=== PATIENT | male | born 1945 | race Caucasian/White ===

== ENCOUNTER 2017-04-05 17:21 | Emergency (ER) | payer OTHER ==
[~2017-04-05] VITALS: Ht 175.3 cm; Wt 84.4 kg
--- NOTE | ~2017-04-05 | MR18 ---
[facility] A Service of [facility] / [facility] RADIOLOGY TEXT RESULTS PATIENT: ZBIGNIEW VASQUEZ LOCATION: CED[facility] : 45 UNIT #: [id number] AGE: [address]: Aurora Whalen MD SEX: M ORDER DR: [id number] [facility] [address] [place], [place] [address] [id number] I MR#: [id number] Acc #: [id number] NAME: ZBIGNIEW VASQUEZ. : 1945 SEX: M STUDY DATE/TIME: 04/06/2017 9:43 UNIT: CEDOF ROOM: 64920 STUDY DESCRIPTION: MR Brain Wo Contrast Attending Physician: Aurora Whalen M.D. Ordering Physician: Odilia Bautista M.D. Primary Care Physician: Ata Dixon M.D. MRI CENTER REPORT This report is preliminary unless electronic signature is present. EXAM MRI of the brain without contrast HISTORY Left eye vision loss starting yesterday with hypertension dizziness previous right endarterectomy. The technologist noted that even though the patient was sedated he could not complete the examination. Limited study is available with sagittal T1 series and axial T2 and diffusion series. FINDINGS The pituitary gland and foramen magnum region are normal. There is no restricted diffusion. There is mild generalized atrophy with minimal symmetric small vessel ischemic changes. IMPRESSION The study is limited because the patient could not complete the entire exam despite sedation. There is no restricted diffusion visible. There is mild atrophy and minimal small vessel ischemic changes. No other abnormalities are identified. Dictated by... Nestor Bowman M.D. THIS IS AN ELECTRONICALLY VERIFIED REPORT Nestor Bowman M.D. at 04/08/2017 7:21 AM HALEIGH/rnmonique TD: 04/07/2017 00:22 JOB #: [id number] [facility] A Service [facility] RADIOLOGY TEXT RESULTS PATIENT: ZBIGNIEW VASQUEZ LOCATION: [facility] : 45 UNIT #: [id number] AGE: [address]: Aurora Whalen MD SEX: M ORDER DR: MRI CENTER REPORT Page 1 of 1 COPY
--- NOTE | ~2017-04-05 | CT71 ---
[facility] A Service of [facility] & [facility] RADIOLOGY TEXT RESULTS PATIENT: ZBIGNIEW VASQUEZ LOCATION: [facility] [id number] : 45 UNIT #: [id number] AGE: [address]: Aurora Whalen MD SEX: M ORDER DR: [id number] [facility] [address] [place], [place] [address] [id number] I MR#: [id number] Acc #: [id number] NAME: ZBIGNIEW VASQUEZ. : 1945 SEX: M STUDY DATE/TIME: 04/05/2017 19:55 UNIT: CEDOF ROOM: [id number] STUDY DESCRIPTION: CT Head Wo Contrast Attending Physician: Aurora Whalen M.D. Ordering Physician: Odilia Bautista M.D. Primary Care Physician: Ata Dixon M.D. MEDICAL IMAGING REPORT This report is preliminary unless electronic signature is present EXAM Head CT without HISTORY 71-year-old patient with a known aneurysm that physicians have been following for 3 years. Prior imaging at [facility]. 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 He lost complete vision in the left eye yesterday at 11 a.m. His vision is slowly coming back today. TECHNIQUE Routine noncontrasted head CT is reviewed. The study is performed in the axial plane. This CT exam was performed with one or more of the following radiation dose reduction techniques: automatic exposure control, adjustment of mA and/or kV according to patient size, and iterative reconstruction. FINDINGS The patient's prior imaging has been performed at [facility], and I do not have access to any films or reports. Therefore, I cannot follow up the patient's known intracranial aneurysm. Most helpful would be review of outside imaging. 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 This study would not be sensitive for intracranial aneurysm. There is streak artifact, particularly on the lower images, presumably due to some motion. Allowing for this, there is no evidence for acute intracranial hemorrhage or extraaxial fluid collection. There is mild generalized atrophy. The patient has had cataract surgery bilaterally. Mild probable sequelae of small vessel disease present. This includes some white matter low attenuation in the periatrial white matter, qrkqi-hlepylh-ybox-left. No acute cortical infarct is suspected. No STS. [facility] A Service of [facility] & [facility] RADIOLOGY TEXT RESULTS PATIENT: ZBIGNIEW VASQUEZ LOCATION: [facility] [id number] : 45 UNIT #: [id number] AGE: [address]: Aurora Whalen MD SEX: M ORDER DR: intracranial mass effect. IMPRESSION 1. 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 This is a noncontrasted head CT and is not sensitive for a diagnosis of intracranial aneurysm. The patient has never had intracranial imaging at this institution, and reportedly, his studies that show intracranial aneurysm were performed at [facility]. Direct comparison to those films would be most helpful. 2. Allowing for some streak artifact, there is no evidence for acute intracranial hemorrhage or extraaxial fluid collection. 3. Atrophy and mild probable sequelae of small vessel disease. Nothing to suggest acute cortical infarct. If this, however, of clinical concern, recommend correlation with follow-up imaging, preferably MRI brain. Dictated by... Gely Carlisle M.D. THIS IS AN ELECTRONICALLY VERIFIED REPORT Gely Carlisle M.D. at 04/08/2017 6:12 AM Aroldo TD: 04/06/2017 11:33 JOB #: [id number] MEDICAL IMAGING REPORT Page 1 of 1 COPY
--- NOTE | ~2017-04-05 | HP ---
Unit #: [id number] #: [id number] Patient: ZBIGNIEW VASQUEZ [id number] [address] [place], [place] [address] [id number] I MR#: [id number] NAME: ZBIGNIEW VASQUEZ ROOM: 45543 Age: 71 Sex: M Admission Date: 04/05/2017 : 1945 Attending Physician: Aurora Whalen M.D. Primary Care Physician: Ata Dixon M.D. HISTORY AND PHYSICAL CHIEF COMPLAINT Left eye vision loss. HISTORY OF PRESENT ILLNESS This is a 71-year-old gentleman who has a history of diabetes, hypertension, coronary artery disease, congestive heart failure, gastroesophageal reflux disease, anemia, chronic kidney disease, chronic obstructive pulmonary disease, dyslipidemia, chronic atrial fibrillation on Coumadin and degenerative joint disease. He said he lost vision in the left eye yesterday, like a curtain in front of the eye. He sees a little better today. He went to see the eye doctor today, Lilly, and they sent him to the emergency room for stroke workup. He had eye exam and was told that he had a possible stroke. He denies any chest pain, diaphoresis, nausea, vomiting, abdominal pain or weakness. No other complaint. PAST MEDICAL HISTORY 1. History of coronary artery disease. 2. History of congestive heart failure. 3. Hypertension. 4. Hyperlipidemia. 5. History of atrial fibrillation on chronic anticoagulation on Coumadin. 6. Diabetes. 7. Chronic obstructive pulmonary disease. 8. Anemia. 9. Gastroesophageal reflux disease. 10. Degenerative joint disease. 11. Questionable history of chronic kidney disease. PAST SURGICAL HISTORY 1. History of cardiac catheterization. 2. Inguinal hernia repair. 3. EGD and colonoscopy in the past. SOCIAL HISTORY The patient is a smoker. He smokes one pack daily for 50 years. Denies alcohol. Denies other illicit drug use. FAMILY HISTORY Notable for coronary artery disease. ALLERGIES No known drug allergies. Unit #: [id number] #: [id number] Patient: ZBIGNIEW VASQUEZ HOME MEDICATIONS 1. Albuterol via nebulizer q.6 h. p.r.n. 2. Aspirin 81 mg daily. 3. Coreg 25 mg b.i.d. 4. Fluticasone nasal spray daily. 5. Lasix 40 mg b.i.d. 6. Ipratropium inhaler via nebulizer q.6 h. 7. Isosorbide 60 mg daily. 8. Lisinopril 20 mg b.i.d. 9. Loratadine 10 mg daily. 10. Metformin 500 b.i.d. 11. Nitroglycerin 0.4 mg sublingual daily. 12. Protonix 40 mg daily. 13. Pravastatin 40 mg daily. 14. Tizanidine 4 mg 1 tablet p.r.n. 15. Trazodone 50 mg 1 tablet at bedtime. 16. Ventolin inhaler 2 puffs q.6 h. p.r.n. 17. Coumadin 6 mg 2 tablets daily. REVIEW OF SYSTEMS All review of systems negative except as per history of present illness. PHYSICAL EXAMINATION GENERAL: Elderly man lying in the bed comfortably. Currently not in any distress. He is alert, awake and oriented times three. VITALS: Currently, temperature 97.8, heart rate 87, respiratory rate 16, blood pressure 122/64, oxygen saturation 98% on room air. HEENT: Pupils equal and reactive to light and accommodation. Head is normocephalic, atraumatic. NECK: Supple. No jugular venous distension. No thyromegaly. Trachea midline. LUNGS: Clear to auscultation. No rhonchi. No wheezing. HEART: S1 and S2. Regular. ABDOMEN: Soft, nontender and nondistended. Bowel sounds positive. EXTREMITIES: Inspection normal. No cyanosis, clubbing or edema. NEUROLOGIC: he is alert and oriented times three. No focal neurologic deficits. Cranial nerves II through XII intact. Power 5/5 both side. PSYCHIATRIC: Normal mood and affect. Cooperative. SKIN: Warm and dry. DIAGNOSTIC STUDIES IMAGING: CT of the head pending at the time of dictation. Chest x-ray shows mild vascular congestion. LABORATORY: Sodium 140, potassium 3.9, chloride 102, CO2 28, glucose 125, BUN 32, creatinine 1.8, LFTs within normal limits. INR 1.8. White blood cell count 10, hemoglobin 9.2, hematocrit 28.3, platelets 258, glucose 128. ASSESSMENT/PLAN 1. Left eye vision loss and amaurosis fugax. Will admit the patient for 23-hour observation. Will get MRI of the head and carotid Doppler. Ask neurology, Dr. Chang, to evaluate. 2. Diabetes with increased creatinine. Hold metformin. Place on sliding scale. 3. Hypertension. 4. Coronary artery disease. Unit #: [id number] #: [id number] Patient: ZBIGNIEW VASQUEZ 5. History of congestive heart failure. Currently he is stable. Continue Lasix, Coreg. 6. History of gastroesophageal reflux disease. 7. History of anemia. 8. Chronic kidney disease. 9. History of chronic obstructive pulmonary disease. 10. Dyslipidemia. 11. Chronic atrial fibrillation. 12. Degenerative joint disease. 13. DVT prophylaxis. He is on Coumadin. Dictated by Scott Pickard TD: 04/06/2017 08:25 JOB #: [id number] HISTORY AND PHYSICAL Page 1 of 1 X X HISTORY AND PHYSICAL
--- NOTE | ~2017-04-05 | US37 ---
[facility] A Service of [facility] RADIOLOGY TEXT RESULTS PATIENT: ZBIGNIEW VASQUEZ LOCATION: [facility] : 45 UNIT #: [id number] AGE: [address]: Odilia Bautista MD SEX: M ORDER DR: [id number] [facility] [address] [place], [place] [address] [id number] MR#: [id number] Acc #: [id number] NAME: ZBIGNIEW VASQUEZ. : 1945 SEX: M STUDY DATE/TIME: 04/05/2017 21:46 UNIT: LEYDI ROOM: STUDY DESCRIPTION: US Carotid W/Doppler Bilateral Attending Physician: Odilia Bautista M.D. Ordering Physician: Odilia Bautista M.D. Primary Care Physician: Ata Dixon M.D. MEDICAL IMAGING REPORT This report is preliminary unless electronic signature is present EXAM Carotid Doppler, 04/05/2017 PROCEDURE Moore-scale imaging, color Doppler flow imaging and Doppler waveform analysis. COMPARISON None HISTORY Known carotid stenosis 5 years status post right carotid endarterectomy. FINDINGS There is moore-scale imaging of plaque throughout both carotid systems. On the right, there is antegrade flow in the common, and internal and external carotid arteries and right vertebral artery. The right internal carotid waveforms are suboptimal due to patient compliance, but internal carotid peak systolic velocity appears to be 51 cm/sec with a brisk upstroke and moderate spectral broadening. The right vertebral flow is antegrade. On the left, there is antegrade flow in the common, and internal and external carotid arteries and plaque throughout the carotid system on moore-scale. Internal carotid peak systolic velocity is 156 cm/sec with a brisk upstroke and lkpl-gf-nuitvkzh spectral broadening. The left vertebral flow is antegrade. IMPRESSION 1. Less than 50% right and 50% to 69% left internal carotid stenosis by NASCET criteria, based on peak systolic velocities. 2. Antegrade flow in both external carotid and vertebral arteries, as well. Moore-scale evidence of plaque is seen throughout both carotid [facility] A Service of [facility] RADIOLOGY TEXT RESULTS PATIENT: ZBIGNIEW VASQUEZ [facility] [place] [facility] #: [id number] : [birth year] UNIT #: [id number] AGE: [address]: Odilia Bautista MD SEX: M ORDER DR: systems. Dictated by... Jhoan Morales M.D. THIS IS AN ELECTRONICALLY VERIFIED REPORT Jhoan Morales M.D. at 05/06/2017 9:09 AM TEV/psc TD: 05/02/2017 23:34 JOB #: [id number] MEDICAL IMAGING REPORT Page 1 of 1 COPY
--- NOTE | ~2017-04-05 | EKG ---
PATIENT: ZBIGNIEW VASQUEZ UNIT #: [id number] Ventricular Rate: 72 BPM Atrial Rate: 71 BPM QRS Duration: 108 ms Q-T Interval: 432 ms QTC Calculation(Bezet): 473 ms Calculated R [place]: 93 degrees Calculated T [place]: 42 degrees Diagnosis Line: Atrial fibrillation Diagnosis Line: Rightward axis Diagnosis Line: Pulmonary disease pattern Diagnosis Line: Nonspecific ST and T wave abnormality Diagnosis Line: Abnormal ECG Diagnosis Line: When compared with ECG of 29-AUG-2016 12:36, Diagnosis Line: Questionable change in QRS duration Diagnosis Line: Confirmed by CHRISTA MACHUCA MD ([id number]) on Diagnosis Line: 04/08/2017 8:53:06 AM INTERPRETING MD: SVEN ORTA
--- NOTE | ~2017-04-05 | CR72 ---
[facility] A Service of [facility] RADIOLOGY TEXT RESULTS PATIENT: ZBIGNIEW VASQUEZ LOCATION: [facility] : 45 UNIT #: [id number] AGE: [address]: Aurora Whalen MD SEX: M ORDER DR: [id number] [facility] [address] [place], [place] [address] [id number] I MR#: [id number] Acc #: [id number] NAME: ZBIGNIEW VASQUEZ. : 1945 SEX: M STUDY DATE/TIME: 04/05/2017 18:43 UNIT: CEDOF ROOM: 59830 STUDY DESCRIPTION: CR Chest Single View Portable Attending Physician: Aurora Whalen M.D. Ordering Physician: Odilia Bautista M.D. Primary Care Physician: Ata Dixon M.D. MEDICAL IMAGING REPORT This report is preliminary unless electronic signature is present EXAM Chest x-ray INDICATIONS Cough, congestion today. Eye doctor said he had stroke behind left eye. 40-year smoking history. TECHNIQUE AP radiograph of the chest presented COMPARISON 08/29/2016 FINDINGS No acute bony abnormality. Stable mild cardiac enlargement. Lung volumes moderate. Slightly lower than on prior examination. Mild vascular prominence could be a reflection of the low lung volumes and/or mild vascular congestion. Weight should be given to clinical assessment. Mild linear interstitial prominence in the central and inferior lung zones. This is a subtle finding could be a reflection of the low lung volumes and some degree of atelectasis. Correlate with any clinical concern for minimal interstitial edema. There is no dense airspace disease, pleural effusion or pneumothorax. No suspicious nodule. Stable calcified granulomata in the right lung. Dictated by... Kurt Bowser M.D. THIS IS AN ELECTRONICALLY VERIFIED REPORT Kurt Bowser M.D. at 04/06/2017 2:37 PM JSK/to [facility] A Service of [facility] RADIOLOGY TEXT RESULTS PATIENT: ZBIGNIEW VASQUEZ LOCATION: [facility] : 45 UNIT #: [id number] AGE: [address]: Aurora Whalen MD SEX: M ORDER DR: TD: 04/06/2017 09:36 JOB #: [id number] MEDICAL IMAGING REPORT Page 1 of 1 COPY
--- NOTE | ~2017-04-05 | CO ---
Unit #: [id number] #: [id number] Patient: ZBIGNIEW VASQUEZ [id number] [facility] [address]. [place], [place] [address] [id number] MR#: [id number] NAME: ZBIGNIEW VASQUEZ. ROOM: [id number] Age: 71 Sex: M Admission Date: 04/05/2017 : 1945 Attending Physician: Aurora Whalen M.D. Primary Care Physician: Ata Dixon M.D. Consultation Date: 04/06/2017 CONSULTATION REPORT PRIMARY CARE PHYSICIAN Dr. Ata Dixon REASON FOR CONSULTATION Left eye vision loss. PATIENT IDENTIFICATION This is a 71-year-old right-handed male, evaluated in the ER room 13 at [facility]. SOURCE OF INFORMATION Obtained from the patient as well as medical record. HISTORY OF PRESENT ILLNESS This is a 71-year-old right-handed male with a past medical history of CAD; CHF; chronic atrial fibrillation, on warfarin; COPD; hypertension; hyperlipidemia; and other medical issues, who presents to [facility] with complaints of left eye vision loss. He is admitted for amaurosis fugax. Apparently, the day before admission, he had lost vision in his left eye and went to see his eye doctor. He states he initially went to see his PCP, who referred him to an eye doctor and states he was told that he needed to come to the ER for possible stroke after his eye exam. Again, this was reported as amaurosis fugax. However, when I discussed with the patient, he states that the vision loss lasted for about 24 hours and felt more or like ""a scotch tape over my eye." It was not completely black, but it was very blurry and he was unable to see anything. He states that symptoms improved, but that he still has blurred vision centrally. He essentially has a central vision loss, which he describes more as a dot in the middle of his eye and he states it is "blurry and saini." He states peripherally though he can see, he states that it is better with both eyes open, but whenever he closes his right eye, he states that he really notices the deficit in the left eye. He denies any pain or trauma. He denies any field cut. He denies any double vision, headache, neck pain, any recent illness or injury, change in weight or routine or medications. He denies any nausea, vomiting, abdominal pain, chest pain, shortness of air, palpitations, any focal weakness or paresthesia in the face, arm, or leg, any headache, speech or swallowing difficulty, or any loss of consciousness, or loss of awareness. His INR on warfarin in the ER was noted to be 1.8 subtherapeutic. He supposed to be on aspirin, but states that he told his primary care physician long ago that he did not want to take aspirin because he read that he should not be on that in addition to warfarin due to increased bleeding risk. He denies any exacerbating or alleviating factors to his vision change and reports that he is better, but not at his Unit #: [id number] #: [id number] Patient: ZBIGNIEW VASQUEZ. He had a head CT done in the ER without contrast that was negative for any acute intracranial abnormality. No acute hemorrhage or extra-axial fluid collection with atrophy and mild probability of sequelae of small vessel disease, but nothing to suggest acute cortical infarct. 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 There was no comparison imaging at this institution, though there was report the patient had studies done at [facility] for intracranial aneurysm. The patient admits to prior vascular evaluations, but reports that he did not follow up. He had an MRI of the brain done that was not fully completed as the patient states he could not lie flat due to difficulty breathing. DWI and ADC imaging was done, which did not reveal any acute or subacute ischemic findings. Imaging appears to be suggestive of some chronic small vessel disease, but is very motion limited in that sequence. The patient also had a carotid ultrasound done in the ER on 04/05/2017 and is essentially nondiagnostic. It was recommended the patient undergo carotid Doppler ultrasound by a tech, who is trained to do vascular imaging. I have discussed with the patient regarding getting further imaging and he adamantly denies being able to tolerate at this time. He is unable to undergo CT angiogram due to kidney function and refuses MR imaging at this time. He is wanting to leave and come back for testing and states that he wants to go home and get a good night's sleep and refuses to stay for further evaluation. PAST MEDICAL HISTORY 1. CAD. 2. CHF. 3. Hypertension. 4. Hyperlipidemia. 5. 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 Please see above. 6. History of chronic atrial fibrillation, on chronic anticoagulation with warfarin. 7. Diabetes mellitus type 2. 8. COPD. 9. Anemia. 10. GERD. 11. DJD. 12. GI bleed with elevated INR, on warfarin. 13. Chronic kidney disease. 14. Cardiac catheterization. 15. Inguinal hernia repair. 16. Right carotid endarterectomy. The patient tells me that he was supposed to have a left carotid endarterectomy, but never followed up. 17. EGD and colonoscopy in the past. FAMILY HISTORY Noncontributory. SOCIAL HISTORY The patient continues to smoke a half pack per day of tobacco and has smoked for 50 years. He denies alcohol abuse or illicit drug use. ALLERGIES No known drug allergies. HOME MEDICATIONS Include; albuterol, Coreg, fluticasone, Lasix, ipratropium inhaler via Unit #: [id number] #: [id number] Patient: VASQUEZZBIGNIEW nebulizer, isosorbide, lisinopril, loratadine, metformin, nitroglycerin, Protonix, pravastatin, tizanidine, trazodone, Ventolin, and Warfarin. He has aspirin listed on his med list, he states he has not taken that in a very long time. Please see above. REVIEW OF SYSTEMS 14-point review of systems was done. Pertinent positives are as discussed above. He denies any dizziness or vertigo or any other symptoms unless as discussed above in the HPI. PHYSICAL EXAMINATION VITAL SIGNS: Temperature 97.5, he has been afebrile; pulse 78; respirations 16; blood pressure 131/65, oxygen saturations 96%, height 5 feet 9 inches, weight 186 pounds, BMI 27. NEUROLOGIC: The patient is awake, alert, and oriented to person, place, and time as well as events. No right or left confusion. No finger agnosia. No aphasia, dysarthria, or apraxia. Cranial nerve exam demonstrates full cooley of vision, but has report of central vision loss at the left eye. On exam, he has decreased or lack of response to visual threats in the left eye centrally peripherally, though however he does respond. He does not appear to have any field cut medially or laterally, upper or lower. The right eye appears to be intact. Extraocular movements are intact. Sensation of face and scalp is intact. Strength of the facial expression is intact. Hearing is intact to finger rub and conversation. Tongue is midline. Uvula is midline. Palate elevation is normal. Head turning and shoulder shrug is unremarkable. Neck is supple. Motor exam demonstrates normal bulk and tone. Strength is equal 5/5 in all extremities. Sensory exam intact without extinction. Gait normal. Romberg deferred. Reflexes unable to elicit. Toes are equivocal. Coordination unremarkable. DIAGNOSTIC STUDIES IMAGING STUDIES: Please see above CT for head without contrast, MRI of the brain without contrast. Full dictated report is pending. Voice clip reviewed and also for carotid Doppler ultrasound done on 04/05/2017, voice clip reviewed. Full dictated report is pending. Chest x-ray on 04/05/2017; impression per Radiology report; 1. No acute bony abnormality. Stable mild cardiac enlargement. Lung volumes moderate slightly lower than on prior exam. Mild vascular prominence could be reflection of low lung volumes and/or mild vascular congestion, which should be given to clinical assessment. Mild linear interstitial prominence of the central and inferior lung zone. Subtle findings could be a reflection of the lower lung volumes and some degree of atelectasis. No dense airspace disease, pleural effusion, or pneumothorax. No suspicious nodule. Stable calcified granulomata in the right lung. LABORATORY RESULTS: Sodium 136, potassium 3.9, chloride 99, CO2 of 27, glucose 141, BUN 33, creatinine 1.7, estimated GFR 39.7, calcium 9.1. PT 19.5, INR 1.8, PTT 30.5. White blood cell count 10, hemoglobin 9.2, hematocrit 28.3, and platelet count 258. Glucose on arrival 128. IMPRESSION 1. Complaints of left eye vision loss, questionable scotoma, residual central vision impairment. History per the patient not consistent with amaurosis fugax at this time. No acute stroke seen on MRI, though cannot rule out a problem with the retina. Must consider optic neuritis or other optic nerve condition. 2. Basilar aneurysmal dilatation concern given report of size, though no Unit #: [id number] #: [id number] Patient: ZBIGNIEW VASQUEZ prior imaging for comparison. The patient has not continued with prior vascular followup in the past. 3. Coronary artery disease. 4. Chronic atrial fibrillation, with subtherapeutic INR of 1.8. 5. Chronic kidney disease. 6. Diabetes mellitus type 2. 7. Tobacco use. 8. History of congestive heart failure. 9. History of anemia. 10. Chronic obstructive pulmonary disease, suspect possible sleep apnea. The patient states he has not been evaluated, but was recommended to be evaluated in the past. PLAN I had a long discussion with Dr. Chang. The patient needs carotid evaluation. He needs intracranial vascular evaluation, though he states he cannot lie flat for an MRA. It was not willing to try again for that. He cannot do CT angiogram given his kidney disease and estimated GFR currently. Carotid ultrasound is essentially nondiagnostic. Consider differential as discussed above. This is an atypical presentation, must consider Solu-Medrol for possible optic neuritis. Consider further evaluation with conventional angiography for aneurysmal dilatation of the basilar, though does not appear to be contributing to his symptoms or presentation. Recommend considering transfer for inpatient neurologist evaluation, Ophthalmology evaluation, and consideration of EMGs. I have recommended the patient that he will be transferred to another facility for the above further workup including the above testing EMGs, possible conventional angiogram, treatment of possibility of optic neuritis, and full intracranial evaluation including the carotids. The patient states that he wants to leave and that he is not going to be going to another hospital today and that he is not staying here today. He states "I know that I'm not going to live more than 2 more years at best because of I've so much wrong with me." He states that he wants to go home and get some sleep and that he is willing to come back at a later date. Explained to him that he needs to have this testing done as an inpatient given his presentation that his vision is at risk and may be permanent. He appears like understanding of his symptoms and risk factors for further vision loss and other further problems including further stroke both hemorrhagic and/or ischemic and may need possible medication adjustment. Recommend continuing adding aspirin, the patient refuses. INR needs to be above 2, but again he also needs further evaluation of his intracranial vasculature and he again needs further specialty evaluation. The patient has elected to leave against medical advice. Please refer to the above consult note for recommendations. Case discussed with Dr. Chang at length. Dictated by... Candelaria DotyPMichaelRMichaelNMichael for Scott Davis/ricky TD: 04/06/2017 19:34 JOB #: [id number] Unit #: [id number] #: [id number] Patient: ZBIGNIEW VASQUEZ CONSULTATION REPORT Page 1 of 1 X Jennifer Rivas APRN CONSULTATION REPORT
[~2017-04-05 17:21] MED LIST: ACETAMINOPHEN PO; ACETAMINOPHEN325 MG PO; ALAVERT10 MG PO; ALBUTEROL0.83 MG/ML IH; ALKA SELTZER; ALLERGY10 M2 PO; AMARYL PO; AMLODIPINE BESYL5 MG PO; AMOXICILLIN PO; ARNUITY ELLIP100 MCG; ASPIRIN EC81 M1 PO; ASPIRIN PO; ASPIRIN81 M1 PO; ASPIRIN81 MG PO; BIAXIN250 MG PO; CARVEDILOL12.5 MG PO; CARVEDILOL25 MG PO; COMBIVENT MININEB INH; COMBIVENT RESPIM4 GM INH; COMBIVENT U/D3 M2 INH; COMBIVENT14.7 GM INH; COREG12.5 MG PO; COUMADIN6 MG PO; EFFIENT10 MG PO; FAMOTIDINE20 M1 PO; FENOFIBRATE48 MG PO; FERROUS SULFATE1 TAB PO; FLOMAX0.4 M1 PO; HYDROCODON-ACE1 EAC7 PO; IMDUR-ER60 MG PO; INHALER; IRON1 TA1 PO; IRON325 ( 651 PO; ISOSORBIDE DINI30 MG PO; K-DUR20 ME1 PO; LASIX PO; LASIX80 MG PO; LEVAQUIN750 MG PO; LISINOPRIL PO; LISINOPRIL20 MG PO; LORTAB 7.5-3251 EACH PO; MELOXICAM15 MG PO; METFORMIN HCL500 M1 PO; MIRALAX17 GM DOB; NAPROSYN500 MG PO; NITROGLYCERIN0.4 MG SL; NITROGLYGERIN0.4 MG SL; NITROSTAT0.4 MG SL; NORVASC2.5 MG PO; OMEPRAZOLE40 MG PO; PRAVASTATIN SOD40 MG PO; PRAVASTATIN SOD80 MG PO; PROTONIX PO; SENNA PO; THIAMINE HCL100 MG PO; TRICOR PO; VICODIN 5/1 TAB 5/50 PO; VITAMIN D250000 UNIT PO; ZETIA PO; ZOCOR PO; ZYRTEC10 M2 PO
[2017-04-05 18:53] LABS: BASOPHIL# 0.2 X10e3 (0-0.3); BASOPHIL% 1.6 % (0-2.5); EOSINOPHIL# 0.1 X10e3 (0-0.7); HEMATOCRIT 28.3 % (38.0-50.0); HEMOGLOBIN 9.2 gm/dL (13.0-16.0); LYMPHOCYTE# 0.6 X10e3 (1.0-3.5); LYMPHOCYTE% 6.5 % (17.0-45.0); MEAN CELL VOLUME 98.2 FL (83-96); MEAN CORPUSCULAR HGB CONC 32.6 g/dL (30-36); MEAN PLATELET VOLUME 10.9 FL (6.5-11.5); MONOCYTE# 0.7 X10e3 (0-1.0); MONOCYTE% 7.3 % (3.0-12.0); NEUTROPHIL# 8.4 X10e3 (1.5-7.1); NEUTROPHIL% 83.6 % (40-75); PLATELET COUNT 258 X10e3 (140-420); RED BLOOD COUNT 2.88 X10e (3.90-5.60); RED CELL DISTRIBUTION WIDTH 19.7 % (11.0-15.5)
[2017-04-05 18:55] LABS: DIFF IND NO
[2017-04-05 19:06] LABS: INR 1.8; PARTIAL THROMBOPLASTIN TIME 30.5 SECONDS (23.5-31.3); PROTHROMBIN TIME (PATIENT) 19.5 SECONDS (10.0-11.7)
[2017-04-05 19:14] LABS: ALBUMIN SERUM 3.9 g/dL (3.5-5.0); BILIRUBIN, DIRECT 0.1 mg/dL (0.0-0.2); BILIRUBIN,INDIRECT 0.5 mg/dL (0.0-0.9); BILIRUBIN,TOTAL 0.6 mg/dL (0.2-2.0); BUN/CREATININE RATIO 17.77; CALCIUM SERUM 9.3 mg/dL (8.4-10.2); CREATININE SERUM 1.8 mg/dL (0.6-1.4); POTASSIUM 3.9 mmol/L (3.5-5.1); PROTEIN TOTAL SERUM 7.6 g/dL (6.0-8.3)
[2017-04-05] MEDS ORDERED: IPRATROPIU0.2 MG/1 M INH (20:56)
[2017-04-05] MEDS ORDERED: CLARITIN10 M3 PO (20:57)
[2017-04-05] MEDS ORDERED: ALBUTEROL2.5 MG/3 M NEB (20:57)
[2017-04-05] MEDS ORDERED: ZANAFLEX4 M1 PO (20:58)
[2017-04-05] MEDS ORDERED: DESYREL50 MG PO (20:59)
[2017-04-05] MEDS ORDERED: ALBUTEROL17 GM INH (21:00)
[2017-04-05] MEDS ORDERED: JANTOVEN6 MG PO (21:01)
[2017-04-05] MEDS ORDERED: COUMADIN3 MG PO (21:05)
[2017-04-06 08:27] LABS: BUN/CREATININE RATIO 19.41; CALCIUM SERUM 9.1 mg/dL (8.4-10.2); CREATININE SERUM 1.7 mg/dL (0.6-1.4); GLOM FILT RATE Estimated 39.7 mL/min (>60); POTASSIUM 3.9 mmol/L (3.5-5.1)
== END 2017-04-06 13:12 | disposition home or self-care (01) ==
LOC: CED 17:21 → CEDOF 21:31
PROVIDERS: Emergency Medicine
DX: H34.12 Central retinal artery occlusion, left eye (principal); J44.9 Chronic obstructive pulmonary disease, unspecified; I11.0 Hypertensive heart disease with heart failure; I50.9 Heart failure, unspecified; E78.5 Hyperlipidemia, unspecified; Z95.5 Presence of coronary angioplasty implant and graft; Z79.01 Long term (current) use of anticoagulants; F17.210 Nicotine dependence, cigarettes, uncomplicated; Z79.82 Long term (current) use of aspirin; Z79.899 Other long term (current) drug therapy
CPT/HCPCS: 36415; 70450; 70551; 71010; 80048; 80076; 82947; 85025; 85610; 85730; 93005; 93880; 94640; 99285; J2060